=== PATIENT | male | born 1980 | race Caucasian/White ===

== ENCOUNTER → 2018-06-24 | Outpatient (CLI) | payer SELFPAY ==
--- NOTE | 2018-06-24 16:21 | KCIC ---
CHEST PA LATERAL History: Right upper chest pain since August 2017.. Comparison: None. Heart size: Within normal limits. Nola/mediastinum: Within normal limits Lungs: No focal airspace consolidation. Pleura: No evidence of pleural effusion. Pneumothorax: None visualized Bones: Regional skeleton appears grossly intact. Miscellaneous: None Impression: No acute radiographic findings. Electronically signed by: Rigo Buchanan MD (06/24/2018 4:18 PM) [facility] [place]
== END | disposition home or self-care (01) ==
LOC: KCIC 11:21
PROVIDERS: ATTEND Clinical Nurse Specialist Family Health
DX: R07.89 Other chest pain (principal)
CPT/HCPCS: 71046